=== PATIENT | female | born 1960 | race Two or more races ===

== ENCOUNTER 2016-11-18 11:05 | Emergency (ER) | payer OTHER | END 2016-11-18 12:00 | disposition home or self-care (01) | LOC: ER 11:05 | DX: S21.002D Unspecified open wound of left breast, subsequent encounter (principal); S21.001D Unspecified open wound of right breast, subsequent encounter; S01.00XD Unspecified open wound of scalp, subsequent encounter | CPT/HCPCS: 99282 ==